=== PATIENT | female | born 1990 | race Caucasian/White ===

== ENCOUNTER 2016-07-28 12:51 | Emergency (ER) | payer OTHER ==
--- NOTE | 2016-07-28 14:59 | ED CLINICAL REPORT ---
Clinical Report - Physicians/Mid Levels [facility] [address] [place] [address] 07/28/2016 12:51 Patient: WOODY MCCOY Time Seen: 13:22; initial patient contact, initial documentation, patient care assumed. Arrived- By private vehicle. Historian- patient. HISTORY OF PRESENT ILLNESS Chief Complaint: VAGINAL BLEEDING. This started today, still present and now gone. It was abrupt in onset. The symptoms are described as severe. Modifying factors. Not worsened by anything. Not relieved by anything. The patient has had crampy abdominal pain. She has had abnormal bleeding described as heavier than normal period and passing clots bleeding this am, stopped now. No pelvic pain, vaginal pain, low back pain, flank pain or vaginal discharge. No pain with urination, urinary frequency, urgency of urination or hematuria. Sexually active- unprotected sex and heterosexual. No exposure to sexually transmitted disease. Does not use control measures. (recently found out she was , x4 days ago when giving urine at methadone clinic). Currently . In 1st trimester. confirmed with urine test. Has had no care. G 2. P 1. Not receiving care. Similar symptoms previously: None. Recent medical care: Not recently seen/assessed. REVIEW OF SYSTEMS No vomiting, diarrhea, fever, difficulty breathing or chest pain. All systems otherwise negative, except as recorded above. PAST HISTORY See nurses notes. ( PROBLEMS: Substance Abuse. --13:05 Abigail Santana, R.N. ADDITIONAL SURGERIES: Cholecystectomy. --13:05 Abigail Santana, R.N.). SOCIAL HISTORY Light tobacco smoker. Occasional alcohol use. 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 No recent travel. Is a local resident. FAMILY HISTORY Negative. ADDITIONAL NOTES The nursing notes have been reviewed with agreement regarding the chief complaint, HPI, ROS, PMH and patient medications and allergies. PHYSICAL EXAM Vital Signs: 07/28/2016 13:02 BP: 106/57. HR: 71. RR: 20. O2 saturation: 98%. Temp: 98.1 F. Pain level now: 08/19. Have been reviewed as normal and appear to be correct. Appearance: Alert. Oriented X3. No acute distress. Anxious. HEENT: Normal external inspection. ENT: Pharynx normal. Neck: Neck supple. CVS: Heart sounds normal. Respiratory: No respiratory distress. Breath sounds normal. Chest nontender. Abdomen: Soft and nontender. Bowel sounds normal. No organomegaly. No mass. Back: Normal external inspection. : External inspection normal. Speculum exam normal. Bimanual exam normal. Skin: Skin warm and dry. Normal skin color. No rash. Normal skin turgor. Extremities: Extremities nontender. No lower extremity edema. Neuro: Oriented X 3. Mood/affect normal. No motor deficit. No sensory deficit. PROGRESS AND PROCEDURES Course of Care: 14:47 07/28/16. pt updated with current lab results and US ordered 14:57 07/28/16. julius walking up and down [place] stating they needed to leave by 1530 had talk with pt, and she informed me she had to leave by 1530 to pick her daughter up, US eta earliest is 1545, pt then asked when I was going to do her injection, asked what injection, she wants her methadone injection, informed ER does not give those, pt then stated she would leave to get her daughter and not stay for US, agreed to dc her. Patient counseled in person regarding the patient's stable condition, test results and diagnosis. Differential Diagnosis: I considered vaginitis, vaginal polyps, vaginal lesion, vaginal cancer, vulvar infection, pelvic inflammatory disease, endometriosis, uterine fibroids, intrauterine , ectopic , incomplete , threatened , retained products of , endometritis and dysfunctional uterine bleeding as a possible cause of vaginal bleeding in this patient. This is a partial list of diagnoses considered. Above considerations are based on history, physical exam, reassessment, laboratory data and other information. Differential diagnosis was discussed with patient. Disposition: Discharged home in good and improved condition (14:58). Condition: good and stable. CLINICAL IMPRESSION Threatened ; positive test in emergency department. INSTRUCTIONS Warnings: Further evaluation is necessary in order to conduct further tests. It is very important to follow up with a physician. GENERAL WARNINGS: Return or contact your physician immediately if your condition worsens or changes unexpectedly, if not improving as expected, or if other problems arise. Specifically return if problem worsens. Follow-up: Follow up with your doctor tomorrow even if well. Call for an appointment. Summary of care provided to patient. Understanding of the discharge instructions verbalized by patient. Follow-up with: Jonathan Solomon MD, Obstetrics/Gynecology, , [facility], [address] [place] [address] Follow up tomorrow as needed. Call for an appointment. Summary of care provided to patient. (Electronically signed by Penny Ramires A.R.N.P. 07/28/2016 18:45)
--- NOTE | 2016-07-28 14:59 | ED ORDER SUMMARY ---
..... Patient: WOODY MCCOY OrderSheet [facility] VisitID: [id number] [address] [place] [address] 25y, F Registration Date/Time: 07/28/2016 ORDER SHEET Weight: 61.2 kg (stated) Allergies: GENERAL ORDERS: CBC w Diff Urgent (13:31 07/28/2016 HBivens A.R.N.P.) (Ack 13:43 AMcQuoid ER Tech1) (13:48 KKnebel R.N.) CMP Urgent (13:07/28/2016 HBivens A.R.N.P.) (Ack 13:43 AMcQuoid ER Tech1) (13:48 KKnebel R.N.) Serum Qualitative Urgent (13:07/28/2016 HBivens A.R.N.P.) (13:34 KKnebel R.N.) Pelvic Exam Setup (13:07/28/2016 HBivens A.R.N.P.) (Ack 13:43 AMcQuoid ER Tech1) (13:48 KKnebel R.N.) US OB 1st Trimester w Transvag (8 wks ago) Urgent (14:44 07/28/2016 HBivens A.R.N.P.) (Ack 14:55 AMcQuoid ER Tech1) (Cancelled: Patient Vjwznzh09:01 AMcQuoid ER Tech1) Serum Quantitative Urgent (14:44 07/28/2016 HBivens A.R.N.P.) (Ack 14:55 AMcQuoid ER Tech1) Type & Rh Urgent (14:44 07/28/2016 HBivens A.R.N.P.) (Ack 14:55 AMcQuoid ER Tech1) MEDICATION ORDERS: IV FLUIDS: IV Saline Lock (13:31 07/28/2016 HBivens A.R.N.P.) (13:48 KKnebel R.N.) ORDER SHEET NOTES: [Electronically signed by Penny RamiresRValentinN.PValentin (18:45 07/28/2016)] [Electronically signed by Ashlyn Hightower R.N. (18:48 07/28/2016)] [Electronically locked/signed by Ashlyn Hightower R.N. (18:48 07/28/2016)]
--- NOTE | 2016-07-28 14:59 | ED CLINICAL REPORT ---
Clinical Report - Physicians/Mid Levels [facility] [address] [place] [address] 07/28/2016 12:51 Patient: WOODY MCCOY Time Seen: 13:22; initial patient contact, initial documentation, patient care assumed. Arrived- By private vehicle. Historian- patient. HISTORY OF PRESENT ILLNESS Chief Complaint: VAGINAL BLEEDING. This started today, still present and now gone. It was abrupt in onset. The symptoms are described as severe. Modifying factors. Not worsened by anything. Not relieved by anything. The patient has had crampy abdominal pain. She has had abnormal bleeding described as heavier than normal period and passing clots bleeding this am, stopped now. No pelvic pain, vaginal pain, low back pain, flank pain or vaginal discharge. No pain with urination, urinary frequency, urgency of urination or hematuria. Sexually active- unprotected sex and heterosexual. No exposure to sexually transmitted disease. Does not use control measures. (recently found out she was , x4 days ago when giving urine at methadone clinic). Currently . In 1st trimester. confirmed with urine test. Has had no care. G 2. P 1. Not receiving care. Similar symptoms previously: None. Recent medical care: Not recently seen/assessed. REVIEW OF SYSTEMS No vomiting, diarrhea, fever, difficulty breathing or chest pain. All systems otherwise negative, except as recorded above. PAST HISTORY See nurses notes. ( PROBLEMS: Substance Abuse. --13:05 Abigail Santana, R.N. ADDITIONAL SURGERIES: Cholecystectomy. --13:05 Abigail Santana, R.N.). SOCIAL HISTORY Light tobacco smoker. Occasional alcohol use. 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 No recent travel. Is a local resident. FAMILY HISTORY Negative. ADDITIONAL NOTES The nursing notes have been reviewed with agreement regarding the chief complaint, HPI, ROS, PMH and patient medications and allergies. PHYSICAL EXAM Vital Signs: 07/28/2016 13:02 BP: 106/57. HR: 71. RR: 20. O2 saturation: 98%. Temp: 98.1 F. Pain level now: 08/19. Have been reviewed as normal and appear to be correct. Appearance: Alert. Oriented X3. No acute distress. Anxious. HEENT: Normal external inspection. ENT: Pharynx normal. Neck: Neck supple. CVS: Heart sounds normal. Respiratory: No respiratory distress. Breath sounds normal. Chest nontender. Abdomen: Soft and nontender. Bowel sounds normal. No organomegaly. No mass. Back: Normal external inspection. : External inspection normal. Speculum exam normal. Bimanual exam normal. Skin: Skin warm and dry. Normal skin color. No rash. Normal skin turgor. Extremities: Extremities nontender. No lower extremity edema. Neuro: Oriented X 3. Mood/affect normal. No motor deficit. No sensory deficit. PROGRESS AND PROCEDURES Course of Care: 14:47 07/28/16. pt updated with current lab results and US ordered 14:57 07/28/16. julius walking up and down [place] stating they needed to leave by 1530 had talk with pt, and she informed me she had to leave by 1530 to pick her daughter up, US eta earliest is 1545, pt then asked when I was going to do her injection, asked what injection, she wants her methadone injection, informed ER does not give those, pt then stated she would leave to get her daughter and not stay for US, agreed to dc her. Patient counseled in person regarding the patient's stable condition, test results and diagnosis. Differential Diagnosis: I considered vaginitis, vaginal polyps, vaginal lesion, vaginal cancer, vulvar infection, pelvic inflammatory disease, endometriosis, uterine fibroids, intrauterine , ectopic , incomplete , threatened , retained products of , endometritis and dysfunctional uterine bleeding as a possible cause of vaginal bleeding in this patient. This is a partial list of diagnoses considered. Above considerations are based on history, physical exam, reassessment, laboratory data and other information. Differential diagnosis was discussed with patient. Disposition: Discharged home in good and improved condition (14:58). Condition: good and stable. CLINICAL IMPRESSION Threatened ; positive test in emergency department. INSTRUCTIONS Warnings: Further evaluation is necessary in order to conduct further tests. It is very important to follow up with a physician. GENERAL WARNINGS: Return or contact your physician immediately if your condition worsens or changes unexpectedly, if not improving as expected, or if other problems arise. Specifically return if problem worsens. Follow-up: Follow up with your doctor tomorrow even if well. Call for an appointment. Summary of care provided to patient. Understanding of the discharge instructions verbalized by patient. Follow-up with: Jonathan Solomon MD, Obstetrics/Gynecology, , [facility], [address] [place] [address] Follow up tomorrow as needed. Call for an appointment. Summary of care provided to patient. (Electronically signed by Penny Ramires A.R.N.P. 07/28/2016 18:45)
--- NOTE | 2016-07-28 14:59 | ED NURSING NOTES ---
Clinical Report - Nurses [facility] [address] [place] [address] 07/28/2016 12:51 Patient: WOODY MCCOY TRIAGE Triage time 13:Jul 28 2016. Acuity: LEVEL 3. Chief Complaint: ABDOMINAL PAIN and CRAMPS and VAGINAL BLEEDING. Alert. No acute distress. --13:07 Abigail Santana R.N. 13:02 07/28/16. BP: 106/57. HR: 71. RR: 20. O2 saturation: 98%. Temp: 98.1 F. Pain level now: 08/19. --13:07 Abigail Santana R.N. Weight: 61.2 kg stated. Height/Length: 63 inches Per Patient. BMI: 23.9. --13:07 Abigail Santana R.N. Medications Methadone 80 mg, daily. --13:03 Abigail Santana R.N. Medication/allergy information source: the patient. --13:07 Abigail Santana R.N. History Arrived by private vehicle. Historian: patient. Accompanied by family and grandfather. This started today. This is a new problem. (at 6 AM). Last oral intake by patient was last night. 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 PAST MEDICAL HX: Immunizations: up-to-date. Last normal menstrual period- about 10 weeks ago. Confirmed . In 1st trimester. SOCIAL HX: Current every day light tobacco smoker (cigarette)- less than 1/2 a pack per day. History of occasional drug use: marijuana. No alcohol use. No infectious disease exposure. SELF HARM ASSESSMENT: A self harm assessment was performed. The patient answered "no" to the question "Do you have thoughts of harming or killing yourself?". FALL RISK ASSESSMENT: Fall risk assessment completed. No fall risk identified. NUTRITIONAL RISK ASSESSMENT: The nutritional risk assessment revealed no deficiencies. FUNCTIONAL ASSESSMENT: Functional assessment: no impairments noted. LEARNING NEEDS ASSESSMENT: The learning needs assessment revealed no barriers. ABUSE ASSESSMENT: Abuse assessment: The patient was asked "Do you feel safe in your home?". SKIN INTEGRITY ASSESSMENT: Skin integrity risk assessment completed. No skin integrity risk identified. --13:07 Abigail Santana R.N. PROBLEMS: Substance Abuse. --13:05 Abigail Santana R.N. ADDITIONAL SURGERIES: Cholecystectomy. --13:05 Abigail Santana R.N. Interventions ID band on patient. --13:07 Abigail Santana R.N. PHYSICAL ASSESSMENT Ambulatory to room. GENERAL / NEURO / PSYCH: Alert. Oriented X 4. Appears in pain. RESPIRATORY: Respirations not labored. CVS: Capillary refill less than 2 seconds. GI / : Abdomen soft. Vaginal bleeding present (had been bleeding this am went 3 pads in 2.5 hrs). No vaginal bleeding. EXTREMITIES: No lower extremity edema. SKIN: Skin is warm and dry. --13:08 Abigail Santana R.N. NURSING PROGRESS NOTES Patient gowned. Head of bed elevated. Patient identifiers checked. Call light placed in reach. Bed placed in lowest position. Brakes of bed on. --13:08 Abigail Santana R.N. 13:48 07/28/2016 Site #1 started via IV in the right antecubital space with an 20g angiocath, with aseptic technique and good blood return; one attempt. Blood drawn: rainbow set. Labeled in the presence of the patient and sent to the lab. Saline lock flushed with 10 mL saline. --13:48 Abigail Santana R.N. Reassessment after procedure. She is calm. Overall patient status is the same- she states feels the same. GENERAL / NEURO / PSYCH: The patient reports anxiety. GI / : The patient reports abdominal pain located in the lower abdomen is still present and currently described as crampy. No vaginal bleeding. SKIN: Skin is warm and dry. --13:53 Abigail Santana R.N. 13:52 07/28/16. BP: 106/54. HR: 67. RR: 16. O2 saturation: 100%. Pain level now: 07/20. --13:53 Knebel, Abigail, R.N. DISPOSITION / DISCHARGE Departure time: 15:15 Jul 28 2016. Condition at departure: improved and stable. No learning barriers present. Patient verbalized understanding. Written instructions provided in [place]. The patient was discharged by the nurse practitioner. She was discharged home and accompanied by family. She left the Emergency Department ambulatory and via private vehicle. Family member driving. --18:47 Ashlyn Hightower R.N. 18:46 07/28/16. BP: 100/49. HR: 66. RR: 12. O2 saturation: 100% on room air. Pain level now: 0/10. --18:47 Ashlyn Hightower R.N. 15:15 07/28/2016 Site #1 removed upon discharge. Catheter intact. Manual pressure and bandage applied. --18:48 Ashlyn Hightower R.N. Locked/Released at 07/28/2016 18:48 by Ashlyn Hightower R.N.
--- NOTE | 2016-07-28 14:59 | ED ORDER SUMMARY ---
..... Patient: WOODY MCCOY OrderSheet [facility] VisitID: [id number] [address] [place] [address] 25y, F Registration Date/Time: 07/28/2016 ORDER SHEET Weight: 61.2 kg (stated) Allergies: GENERAL ORDERS: CBC w Diff Urgent (13:31 07/28/2016 HBivens A.R.N.P.) (Ack 13:43 AMcQuoid ER Tech1) (13:48 KKnebel R.N.) CMP Urgent (13:07/28/2016 HBivens A.R.N.P.) (Ack 13:43 AMcQuoid ER Tech1) (13:48 KKnebel R.N.) Serum Qualitative Urgent (13:07/28/2016 HBivens A.R.N.P.) (13:34 KKnebel R.N.) Pelvic Exam Setup (13:07/28/2016 HBivens A.R.N.P.) (Ack 13:43 AMcQuoid ER Tech1) (13:48 KKnebel R.N.) US OB 1st Trimester w Transvag (8 wks ago) Urgent (14:44 07/28/2016 HBivens A.R.N.P.) (Ack 14:55 AMcQuoid ER Tech1) (Cancelled: Patient Lsrmtmq60:01 AMcQuoid ER Tech1) Serum Quantitative Urgent (14:44 07/28/2016 HBivens A.R.N.P.) (Ack 14:55 AMcQuoid ER Tech1) Type & Rh Urgent (14:44 07/28/2016 HBivens A.R.N.P.) (Ack 14:55 AMcQuoid ER Tech1) MEDICATION ORDERS: IV FLUIDS: IV Saline Lock (13:31 07/28/2016 HBivens A.R.N.P.) (13:48 KKnebel R.N.) ORDER SHEET NOTES: [Electronically signed by Penny RamiresRValentinN.PValentin (18:45 07/28/2016)] [Electronically signed by Ashlyn Hightower R.N. (18:48 07/28/2016)] [Electronically locked/signed by Ashlyn Hightower R.N. (18:48 07/28/2016)]
--- NOTE | 2016-07-28 14:59 | ED NURSING NOTES ---
Clinical Report - Nurses [facility] [address] [place] [address] 07/28/2016 12:51 Patient: WOODY MCCOY TRIAGE Triage time 13:Jul 28 2016. Acuity: LEVEL 3. Chief Complaint: ABDOMINAL PAIN and CRAMPS and VAGINAL BLEEDING. Alert. No acute distress. --13:07 Abigail Santana R.N. 13:02 07/28/16. BP: 106/57. HR: 71. RR: 20. O2 saturation: 98%. Temp: 98.1 F. Pain level now: 08/19. --13:07 Abigail Santana R.N. Weight: 61.2 kg stated. Height/Length: 63 inches Per Patient. BMI: 23.9. --13:07 Abigail Santana R.N. Medications Methadone 80 mg, daily. --13:03 Abigail Santana R.N. Medication/allergy information source: the patient. --13:07 Abigail Santana R.N. History Arrived by private vehicle. Historian: patient. Accompanied by family and grandfather. This started today. This is a new problem. (at 6 AM). Last oral intake by patient was last night. 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 PAST MEDICAL HX: Immunizations: up-to-date. Last normal menstrual period- about 10 weeks ago. Confirmed . In 1st trimester. SOCIAL HX: Current every day light tobacco smoker (cigarette)- less than 1/2 a pack per day. History of occasional drug use: marijuana. No alcohol use. No infectious disease exposure. SELF HARM ASSESSMENT: A self harm assessment was performed. The patient answered "no" to the question "Do you have thoughts of harming or killing yourself?". FALL RISK ASSESSMENT: Fall risk assessment completed. No fall risk identified. NUTRITIONAL RISK ASSESSMENT: The nutritional risk assessment revealed no deficiencies. FUNCTIONAL ASSESSMENT: Functional assessment: no impairments noted. LEARNING NEEDS ASSESSMENT: The learning needs assessment revealed no barriers. ABUSE ASSESSMENT: Abuse assessment: The patient was asked "Do you feel safe in your home?". SKIN INTEGRITY ASSESSMENT: Skin integrity risk assessment completed. No skin integrity risk identified. --13:07 Abigail Santana R.N. PROBLEMS: Substance Abuse. --13:05 Abigail Santana R.N. ADDITIONAL SURGERIES: Cholecystectomy. --13:05 Abigail Santana R.N. Interventions ID band on patient. --13:07 Abigail Santana R.N. PHYSICAL ASSESSMENT Ambulatory to room. GENERAL / NEURO / PSYCH: Alert. Oriented X 4. Appears in pain. RESPIRATORY: Respirations not labored. CVS: Capillary refill less than 2 seconds. GI / : Abdomen soft. Vaginal bleeding present (had been bleeding this am went 3 pads in 2.5 hrs). No vaginal bleeding. EXTREMITIES: No lower extremity edema. SKIN: Skin is warm and dry. --13:08 Abigail Santana R.N. NURSING PROGRESS NOTES Patient gowned. Head of bed elevated. Patient identifiers checked. Call light placed in reach. Bed placed in lowest position. Brakes of bed on. --13:08 Abigail Santana R.N. 13:48 07/28/2016 Site #1 started via IV in the right antecubital space with an 20g angiocath, with aseptic technique and good blood return; one attempt. Blood drawn: rainbow set. Labeled in the presence of the patient and sent to the lab. Saline lock flushed with 10 mL saline. --13:48 Abigail Santana R.N. Reassessment after procedure. She is calm. Overall patient status is the same- she states feels the same. GENERAL / NEURO / PSYCH: The patient reports anxiety. GI / : The patient reports abdominal pain located in the lower abdomen is still present and currently described as crampy. No vaginal bleeding. SKIN: Skin is warm and dry. --13:53 Abigail Santana R.N. 13:52 07/28/16. BP: 106/54. HR: 67. RR: 16. O2 saturation: 100%. Pain level now: 07/20. --13:53 Knebel, Abigail, R.N. DISPOSITION / DISCHARGE Departure time: 15:15 Jul 28 2016. Condition at departure: improved and stable. No learning barriers present. Patient verbalized understanding. Written instructions provided in French. The patient was discharged by the nurse practitioner. She was discharged home and accompanied by family. She left the Emergency Department ambulatory and via private vehicle. Family member driving. --18:47 Ashlyn Hightower R.N. 18:46 07/28/16. BP: 100/49. HR: 66. RR: 12. O2 saturation: 100% on room air. Pain level now: 0/10. --18:47 Ashlyn Hightower R.N. 15:15 07/28/2016 Site #1 removed upon discharge. Catheter intact. Manual pressure and bandage applied. --18:48 Ashlyn Hightower R.N. Locked/Released at 07/28/2016 18:48 by Ashlyn Hightower R.N.
--- NOTE | 2016-07-28 18:49 | ED MED RECONCILIATION SUMMARY ---
Patient: WOODY MCCOY Medication Reconciliation Report [facility] VisitID: [id number] [address] [place] [address] 25y, F Registration Date/Time: 07/28/2016 Weight: 61.2 kg Height/Length: 63 in. BMI: 23.9 ALLERGIES: The patient's Home Medications are listed below: THE FOLLOWING MEDICATIONS NEED TO BE RECONCILED: Methadone 80 mg, daily The source(s) of the original Home Medication information: patient The following Medications were given to the patient in the Emergency Department: None. The following Medications were prescribed to the patient: None.
--- NOTE | 2016-07-28 18:49 | ED DISCHARGE INSTRUCTIONS ---
Patient: WOODY MCCOY General Instructions [facility] VisitID: [id number] [place] [id number] 25y, F Registration Date/Time: 07/28/2016 INSTRUCTIONS Warnings: Further evaluation is necessary in order to conduct further tests. It is very important to follow up with a physician. GENERAL WARNINGS: Return or contact your physician immediately if your condition worsens or changes unexpectedly, if not improving as expected, or if other problems arise. Specifically return if problem worsens. Follow-up: Follow up with your doctor tomorrow even if well. Call for an appointment. Summary of care provided to patient. Understanding of the discharge instructions verbalized by patient. Follow-up with: Jonathan Solomon MD, Obstetrics/Gynecology, , [facility], [address] [place] [address] Follow up tomorrow as needed. Call for an appointment. Summary of care provided to patient. ADDITIONAL INFORMATION Possible Miscarriage (Threatened ) During early (first three months), it is not uncommon to have a small amount of bleeding. This can be entirely normal. But heavy bleeding or severe cramping can be an early sign of miscarriage. A miscarriage means unexpected loss of your . In about half of patients with bleeding or cramping during early , these symptoms will stop and the will continue normally. However, half of the time a miscarriage will occur. A miscarriage may occur due to various causes. These include a problem with the babys chromosomes (genes that carry the information needed for life) or with fertilization or implantation that didnt happen correctly. In most cases no cause can be found. Be reassured that this is not the result of anything that you did wrong, and it will not interfere with your ability to become in the future. Home Care: To improve the chance of keeping this , you should do the following: Rest in bed until the pain and bleeding stop. Do not have sexual intercourse for the next 3 weeks. Use sanitary napkins instead of tampons. Do not douche. Follow-Up: Make an appointment with your doctor within the next week, or as directed by our staff. Note: If you had an ultrasound, it will be reviewed by a specialist. You will be notified of any new findings that may affect your care. Get Prompt Medical Attention if any of the following occur: Vaginal bleeding or pain for more than three days Heavy bleeding (soaking one new pad an hour over three hours) Fever of 100.4F (38C) or higher, or as directed by your healthcare provider Increasing lower abdominal pain Weakness, dizziness, or fainting Passage of anything that resembles tissue: pink or grayish membrane or solid material (save the tissue in a clean container and bring to the doctor) Abdominal Pain And Early [R/O Sab, Ectopic: Serial Q-Hcg's] Based on your visit today, we know you are . But, the exact cause of your abdominal (stomach) pain is not certain. Some pain or bleeding may occur in a NORMAL . But pain may also be a sign of a MISCARRIAGE or an ECTOPIC (baby growing in the Fallopian tube instead of the uterus). An ectopic is a very serious condition. It can lead to severe internal bleeding and even . Therefore, further tests are needed to find out the cause of your symptoms. These may include: ULTRASOUND - A pelvic ultrasound can detect a normal as early as 4-5 weeks of age. But, if the ultrasound test does not show the baby inside the uterus, it means that i) you have a normal less than 4 weeks old, ii) you are having or recently had a miscarriage or iii) you have an ectopic . QUANTITATIVE HCG - a test that measures the amount of hormone in your blood. Comparing today's test result to a repeat test in 48 hours shows whether or not you have a normal . LAPAROSCOPY - a surgical procedure where a tube with a light is placed inside the abdomen to look directly at the pelvic organs. This is used when it is not safe to wait 48 hours for blood test results. Important If you do have an ectopic , there is a small chance that the growing fetus can tear the Fallopian tube and cause severe internal bleeding. If this happens, there may be SUDDEN SEVERE LOWER ABDOMINAL PAIN, VAGINAL BLEEDING, WEAKNESS, DIZZINESS and sometimes FAINTING. If any of these symptoms occur: CALL AN AMBULANCE (call 911) or return immediately to the hospital. DO NOT DRIVE YOURSELF. DO NOT GO TO YOUR DOCTOR'S OFFICE OR TO A CLINIC. Home Care: Rest until your next exam. Do not perform any strenuous activity. Eat a light diet with foods that are easy to digest. Avoid sexual intercourse until all symptoms have gone away and you are cleared by your doctor. Follow Up with your doctor or this facility as advised for repeat blood testing. [NOTE: If you had an X-ray or ultrasound test, it will be reviewed by a specialist. You will be notified of any new findings that may affect your care.] Get Prompt Medical Attention if any of the following occur: Sudden or gradual worsening abdominal pain Fainting, dizziness or weakness when standing Heavy vaginal bleeding (soaking one pad an hour for three hours) Vaginal bleeding for more than 5 days Repeated vomiting or diarrhea Pain that moves to the right lower abdomen (stomach) Blood in vomit or bowel movements (dark red or black color) Fever of 100.4F (38C) or higher, or as directed by your healthcare provider You have been given the following additional information: Possible Miscarriage (Threatened ) Abdominal Pain, Early (Electronically signed by Penny Ramires A.R.N.P. 07/28/2016 18:45)
--- NOTE | 2016-07-28 18:49 | ED MAR SUMMARY ---
..... Medication Administration Record [facility] [address] [place], [place] [id number] Patient: WOODY MCCOY Visit ID: [id number] 25y, F Weight: 61.2 kg Height/Length: 63 in BMI: 23.9 ALLERGIES:
--- NOTE | 2016-07-28 18:49 | ED MED RECONCILIATION SUMMARY ---
Patient: WOODY MCCOY Medication Reconciliation Report [facility] VisitID: [id number] [address] [place] [place] [address] 25[place], F Registration Date/Time: 07/28/2016 Weight: 61.2 kg Height/Length: 63 in. BMI: 23.9 ALLERGIES: The patient's Home Medications are listed below: THE FOLLOWING MEDICATIONS NEED TO BE RECONCILED: Methadone 80 mg, daily The source(s) of the original Home Medication information: patient The following Medications were given to the patient in the Emergency Department: None. The following Medications were prescribed to the patient: None.
--- NOTE | 2016-07-28 18:49 | ED MAR SUMMARY ---
..... Medication Administration Record Merged With [facility] [address] [place], [place] [id number] Patient: WOODY MCCOY Visit ID: [id number] 25y, F Weight: 61.2 kg Height/Length: 63 in BMI: 23.9 ALLERGIES:
== END 2016-07-28 15:15 | disposition home or self-care (01) ==
LOC: ED SRH 12:51
DX: O20.0 Threatened abortion (principal); F11.20 Opioid dependence, uncomplicated; Z3A.01 Less than 8 weeks gestation of pregnancy; Z72.0 Tobacco use
CPT/HCPCS: 90001; 90100; 90155; 90197; 95059; 98428